=== PATIENT | male | born 1965 | race Caucasian/White ===

== ENCOUNTER → 2017-11-28 | Outpatient (CLI) | payer OTHER, MEDICAID ==
--- NOTE | 2017-12-21 10:53 | SLEEP ---
[address] [address] SLEEP STUDY REPORT Name: PETTY RILEY Room: [facility]#: [id number] Admission: 11/28/17 Attend Phys: Sanju Rae Discharge: Date of : 61 Report #: [id number] THIS REPORT FOR: //name// CC: Sanju Jones This study has been reviewed in its entirety by a board certified sleep specialist DATE OF SERVICE: 11/28/2017 INDICATION FOR SLEEP STUDY: Daytime sleepiness and previously diagnosed history of obstructive sleep apnea. INTERPRETATION: Total duration of the study is 417 minutes. During this time duration, the patient was asleep for 179 minutes. This overall sleep efficiency was decreased to 43%. Sleep onset initially occurred at 10:50 p.m. The patient's light out time was 10:29 p.m. The REM onset occurs for the first time around 12:15 a.m. N1 sleep duration was 16%, N2 duration was 71%. There is no N3 sleep recorded. REM duration is 13%. This is a split night sleep study. During the initial 148 minutes, the patient was not on positive airway pressure therapy. There is a sleep time of 102 minutes recorded during the diagnostic portion of the sleep study. This included 11 minutes in REM sleep, the rest was non-REM sleep. During this time duration, there were multiple sleep related respiratory events recorded. These include 23 obstructive apneas in addition to 24 hypopneas. The patient's overall apnea-hypopnea index is 27.8. Body position data indicates that the entire duration of sleep time is in the supine position. Mean heart rate was 64 during the diagnostic portion of the sleep study with a limb movement index of 5.9. Arousal index was mildly elevated to 17. The patient was subsequently placed on positive airway pressure therapy and was observed in positive airway pressure therapy for 270 minutes. This included 78 minutes of sleep time. Review of the CPAP/bilevel titration indicates that there were various CPAP pressures tried; however, the patient was awake for most of the time the patient was on CPAP and the patient's optimal CPAP pressure or control on CPAP could not be ascertained. There is some sleep time recorded on BiPAP, but most of the time the patient is on BiPAP, the patient again is awake and therefore, the patient's optimal positive airway pressure therapy could not be determined based on the sleep study. The patient is noted to have hypoxemia during the diagnostic portion of the sleep study, spending 17 minutes below an O2 saturation of 88%. IMPRESSION: [place] [address] SLEEP STUDY REPORT Name: PETTY RILEY Room: [facility]#: [id number] Admission: 11/28/17 Attend Phys: Sanju Rae Discharge: Date of : 61 Report #: [id number] 1. The patient has obstructive sleep apnea. Apnea-hypopnea index is 27.8 with nocturnal hypoxemia. The patient spent 17 minutes during the diagnostic portion of the sleep study below an O2 saturation of 88%. Body position data indicates the patient is mostly lying supine. 2. The patient requires a positive airway pressure therapy for control of his obstructive sleep apnea. The patient's optimal positive airway pressure therapy for this purpose could not, however, be ascertained based on the sleep study due to a reduction in total sleep time when on positive airway pressure therapy. RECOMMENDATIONS: 1. I recommend repeating a sleep study for titration on positive airway pressure, initially start with CPAP; however, suggest having a low threshold of switching to BiPAP. If switched to BiPAP, suggest starting on the lower side on the BiPAP pressures. Consider setting the eye on BiPAP to approximately the final EPAP pressure if we do convert to BiPAP during the next sleep study. 2. Recommend weight loss. 3. Recommend avoiding driving or other activities requiring vigilance if drowsy. This entire sleep study was reviewed by board certified sleep physician. <ELECTRONICALLY SIGNED> By: Giancarlo Meredith MD 12/21/17 [id number] Meredith MD /nt
== END ==
LOC: M.SLEEPLAB 21:00
DX: G47.30 Sleep apnea, unspecified (principal)